=== PATIENT | female | born 2005 | race Hispanic/Latino ===

== ENCOUNTER 2025-07-29 14:58 | Emergency (ER) | payer OTHER ==
[2025-07-29] MEDS ORDERED: Ketorolac Tromethamine 30 MG (1 mL) VIAL ONE (15:26)
[2025-07-29] MEDS ORDERED: Dexamethasone 10 MG/ML VIAL ONE (15:26)
== END 2025-07-29 16:24 | disposition home or self-care (01) ==
LOC: CSHERS 14:58
DX: S00.83XA Contusion of other part of head, initial encounter (principal); S16.1XXA Strain of muscle, fascia and tendon at neck level, initial encounter; Y04.8XXA Assault by other bodily force, initial encounter
CPT/HCPCS: 70450; 72125; 96372; J1100; J1885